=== PATIENT | female | born 1995 | race Caucasian/White ===

== ENCOUNTER → 2019-11-14 07:54 | Outpatient (CLI) | payer OTHER, SELFPAY ==
--- NOTE | ~2019-11-14 | MR_ITS ---
EXAMINATION: MR knee RT wo con DATE: 11/14/2019 08:41 INDICATION: Right knee pain and swelling with limited range of motion post soccer injury with 2 audib le pops 2-3 weeks prior TECHNIQUE: Magnetic resonance imaging (MRI) of the right knee was performed without intravenous contr ast. Sequences included coronal PD-weighted FSE, coronal PD-weighted FS FSE, sagittal T2-weighted FS E, sagittal PD-weighted FS FSE and axial PD weighted fat saturated FSE. COMPARISON: None. FINDINGS: Medial compartment: Additional oblique tear extending to the inferior articular surface and the peripheral third of the p osterior horn and posterior body of the medial meniscus. Suggestion of an additional small tear plane along the inferior articular surface at the junction of the inner and mid thirds of the posterior ho rn. There is a bone contusion with marrow edema along the posterior rim of the medial tibial plateau but without evident cartilage defect. Articular cartilage the medial compartment appears normal. Lateral compartment: Lateral meniscus is normal. Articular cartilage is normal. Additional bone contusions without discret e fracture lines or overlying cartilage defects at the lateral sulcus of the lateral femoral condyle and posterior rim of the lateral tibial plateau. Patellofemoral compartment: Articular cartilage is normal. Ligaments and tendons: Complete tear of the proximal anterior cruciate ligament which is reflected anteriorly and inferiorly resulting in a cyclops lesion with the torn ligament margin positioned at the anterolateral aspect o f the intercondylar notch. Posterior cruciate ligament is normal. The medial collateral ligament is n ormal. There is mild increased signal along the otherwise normal-appearing fibular collateral ligamen t consistent with low-grade sprain. Popliteal muscle and tendon from the arcuate ligament, anterior a nd posterior ligaments of the fibular head and capsule at the posterolateral corner appear to remain normal. The extensor mechanism is normal. The visualized medial and lateral hamstring tendons as well as the iliotibial band are normal. Fluid: Small knee joint effusion. No loose osteochondral bodies identified. Osseous/other: Bone contusions at the medial and lateral femoral condyles and posterior tibia as previously detailed in pattern consistent with anterior tibial subluxation injury occurring with anterior cruciate ligam ent tear. No fracture or pathologic marrow replacing process. IMPRESSION: 1. Anterior tibial subluxation injury pattern with complete tear of the anterior cruciate ligament wi th bone contusions at the medial and lateral femoral condyles and on the posterior margin of the medi al and lateral tibial plateaus. 2. Tear of the body and posterior horn of the medial meniscus with at least a peripheral longitudinal oblique tear plane and possible separate small secondary tear plane closer to the free edge at the p osterior horn. 3. Likely low-grade sprain of the proximal fibular collateral ligament. Reviewed, dictated and finalized at location A. [facility] [employer] IMPRESSION: 1. Anterior tibial subluxation injury pattern with complete tear of the anterio r cruciate ligament with bone contusions at the medial and lateral femoral cond yles and on the posterior margin of the medial and lateral tibial plateaus. 2. Tear of the body and posterior horn of the medial meniscus with at least a p eripheral longitudinal oblique tear plane and possible separate small secondary tear plane closer to the free edge at the posterior horn. 3. Likely low-grade sprain of the proximal fibular collateral ligament.
== END ==
DX: S83.241A Other tear of medial meniscus, current injury, right knee, initial encounter (principal); X58.XXXA Exposure to other specified factors, initial encounter; M25.461 Effusion, right knee; M25.361 Other instability, right knee
CPT/HCPCS: 73721

== ENCOUNTER 2020-06-21 10:58 | Emergency (ER) | payer OTHER, SELFPAY ==
[2020-06-21 11:10] VITALS: BP 137/89; PULSE 78; RESP 16; TEMP 36.7; O2SAT 100
--- NOTE | 2020-06-21 11:43 | PC.NURSE ---
1142- Pt updated on wait time. No further complaints at this time.
--- NOTE | 2020-06-21 11:56 | ED.URI ---
HPI - URI/Sore Throat General Chief Complaint: Upper Respiratory Infection Stated Complaint: sore throat/hong Time Seen by Provider: 06/21/20 11:56 Source: patient Mode of arrival: ambulatory Limitations: no limitations History of Present Illness HPI Narrative: Abel Valverde is a 25 yo female with no PMH who comes to express care with 6 days of headache and sore throat. She states that she has been checking her temperature daily and does not have a fever, she has been checked multiple times for COVID in all tested been negative, but she continues to have the symptoms and does not feel well in general. Currently she rates her sore throat is being 3 out of 10; she is not eating as well as she normally does nor is she drinking as much fluid Related Data Allergies Allergy/AdvReac Type Severity Reaction Status Date / Time No Known Allergies Allergy Verified 06/21/20 11:16 Review of Systems Review of Systems: Narrative: CONSTITUTIONAL: Denies fever, chills, sweats. EYES: Denies visual changes, redness, discharge. ENT: Denies rhinorrhea, congestion, has sore throat, no otalgia. CARDIOVASCULAR: Denies chest pain, palpitations, edema. RESPIRATORY: Denies dyspnea, wheezing, no cough GASTROINTESTINAL: Denies abdominal pain, nausea, vomiting, diarrhea. GENITOURINARY: Denies dysuria, hematuria, abnormal discharge SKIN: Denies rash or itching. NEUROLOGIC: Denies numbness, or focal weakness. Headache PSYCHIATRIC: Denies anxiety or depression. PMFSH Past Medical History Medical History No active medical problems Family History Family History Other No active medical problems Social History Social History Smoking status: Never smoker Alcohol intake: current Gender identity (if verbalized by the patient): Female Comments at time of signature, I agree with nursing past medical, surgical, social and family history. There is no relevant family history pertinent to the presenting complaint. Exam Narrative: Exam Narrative: GENERAL: This is a well-nourished, well-developed patient, in mild distress. HEAD: normocephalic, atraumatic. EYES: PERRL. Sclera clear/white. Vision is grossly intact. EARS: External ears normal, . Hearing grossly intact. NOSE: External nose normal without nasal discharge, nares without redness, no rhinorrhea. THROAT: Mucous membranes moist, posterior pharynx erythema with pockets in left tonsil some exudate in center NECK: Neck supple, mild-tenderness no enlarged lymph nodes CARDIOVASCULAR: Regular rate and rhythm without murmurs, gallops, or rubs. RESPIRATORY: Clear to auscultation. Breath sounds equal bilaterally. No wheezes, rales, or rhonchi. GASTROINTESTINAL: Abdomen soft, non-tender, SKIN: warm, intact with no suspicious lesions or rash, good texture and turgor. NEURO: awake, alert, and oriented to person, place and time. There were no obvious focal neurologic abnormalities. Steady gait EXTREMITIES: Normal range of motion. BACK: Nontender without deformity get little upset Course Course Emergency Course: Both flu and strep swab were negative Because of the length of symptoms and also the condition of her posterior pharynx, , started on Zithromax and prednisone. Discussed hydration and taking a medication for the next couple of days We will follow-up with primary care physician Vital Signs Vital signs: Vital Signs Temperature 98.0 F 06/21/20 11:10 Pulse Rate 78 06/21/20 11:10 Respiratory Rate 16 06/21/20 11:10 Blood Pressure 137/89 06/21/20 11:10 Pulse Oximetry 100 06/21/20 11:10 Temperature 98.0 F 06/21/20 11:10 Pulse Rate 78 06/21/20 11:10 Respiratory Rate 16 06/21/20 11:10 Blood Pressure 137/89 06/21/20 11:10 Pulse Oximetry 100 06/21/20 11:10 MDM - URI/Sore Throat Differential Diagn
== END 2020-06-21 12:15 | disposition home or self-care (01) ==
PROVIDERS: Emergency Provider Nurse Practitioner
DX: J02.8 Acute pharyngitis due to other specified organisms (principal); J06.9 Acute upper respiratory infection, unspecified
CPT/HCPCS: 87081; 87804; 87880; 99203; G0463

== ENCOUNTER 2022-06-16 23:23 | Emergency (ER) | payer OTHER, SELFPAY ==
--- NOTE | ~2022-06-16 | CT_ITS ---
EXAMINATION: CT lumbar spine wo con DATE: 06/17/2022 01:07 INDICATION: Low back pain radiating down the left leg. TECHNIQUE: Computed tomography (CT) of the lumbar spine was performed without intravenous contrast. A utomated exposure control and iterative reconstruction technique were employed. The dose-length produ ct was 366.32 mGy-cm. COMPARISON: None FINDINGS: There is 13 degrees levoscoliosis of lumbar spine. Vertebral body heights are normal. There is mildly decreased disc height at L4-L5 and L5-S1. The following disc levels are specifically discu ssed: L1-L2: The disc does not extend beyond the endplate margin. There is mild bilateral facet joint osteo arthritis. There is no neural foraminal stenosis. There is no central canal stenosis. L2-L3: The disc does not extend beyond the endplate margin. There is mild bilateral facet joint osteo arthritis. There is no neural foraminal stenosis. There is no central canal stenosis. L3-L4: The disc is mildly bulging. There is mild bilateral facet joint osteoarthritis. There is mild left neural foraminal stenosis. There is no central canal stenosis. L4-L5: The disc is bulging. There is mild bilateral facet joint osteoarthritis. There is mild bilater al neural foraminal stenosis. There is mild central canal stenosis. L5-S1: The disc is bulging. There is moderate right facet joint osteoarthritis. There is mild bilater al neural foraminal stenosis. There is mild central canal stenosis. IMPRESSION: 1. Mild lumbar spondylosis. 2. Lumbar levoscoliosis. Reviewed, dictated and finalized at location A.
[2022-06-16 23:57] VITALS: O2SAT 100
--- NOTE | 2022-06-17 00:18 | ED.BACK ---
HPI - Back Pain/Injury General Chief Complaint: Back Pain/Injury Stated Complaint: Low back pain Time Seen by Provider: 06/17/22 00:10 Source: patient Mode of arrival: ambulatory Limitations: no limitations History of Present Illness HPI Narrative: This is a 27 year old female that presents to the ER for low back pain ongoing over the last week. Reports no known recent injury. Reports today she was running at soccer practice and starting to slow down. She felt a sudden pop in her lower back. She has had sharp pain in the lower back since. It is radiating down her left leg. She took Tylenol and Ibuprofen earlier with little relief. Denies saddle anesthesia or bowel/bladder incontinence. Related Data Allergies Allergy/AdvReac Type Severity Reaction Status Date / Time No Known Allergies Allergy Verified 06/21/20 11:16 Review of Systems Review of Systems: CONSTITUTIONAL: Denies fever SKIN: Denies rash MUSCULOSKELETAL: Reports back pain, joint pain, and myalgia. NEUROLOGIC: Denies numbness, or weakness. All systems reviewed & are unremarkable except as noted in HPI and below PMFSH Past Medical History Medical History (Updated 06/17/22 @ 01:36 by Luda Carrillo PA-C) No active medical problems Family History Family History Other No active medical problems Social History Social History (Updated 06/17/22 @ 00:18 by Luda Carrillo PA-C) Smoking status: Never smoker Alcohol intake: current Substance use: never Gender identity (if verbalized by the patient): Female Exam Narrative: GENERAL: Well-appearing, well-nourished, and in no acute distress. HEAD: Normocephalic, atraumatic. EYES: EOMI. CHEST: Clear to auscultation. No respiratory distress. No wheezes rales or rhonchi HEART: Regular rate and rhythm. No murmur heard. Normal peripheral pulses. BACK: No midline spinal tenderness EXTREMITIES: Normal range of motion. No edema. Normal DP pulses. Strength equal in bilateral lower extremities (5/5) SKIN: Warm, dry, no rash. NEURO: No focal deficits. Alert and oriented x3. Normal gait PSYCH: Normal mood and affect Course Vital Signs Vital signs: Vital Signs Pulse Oximetry 100 06/16/22 23:57 Temperature 98.5 F 06/17/22 01:48 Pulse Rate 64 06/17/22 01:48 Respiratory Rate 18 06/17/22 01:48 Blood Pressure 122/73 06/17/22 01:48 Pulse Oximetry 100 06/17/22 01:48 MDM - Back Pain/Injury MDM Narrative Medical decision making narrative: Patient presents to the emergency department for low back pain radiating into the left leg ongoing over the last week with acute worsening today. Patient is neurovascularly intact. CT scan of the lumbar spine shows mild bilateral foraminal stenosis at L4/5 from a bulging disc. No acute findings. Patient and family updated on case findings. Instructed to rest, ice and take [id number] pain medication as needed. Will be prescribed muscle relaxer as needed for pain. Will be given neurosurgery for follow-up. She was given warnings to return to the ER Lab Data Labs: UCG Bedside Result Negative Reference Range: Negative Imaging Data Radiologist's impression: CT lumbar spine STATRAD: Mild bilateral foraminal stenosis at L4/5 from disc bulge. No acute findings Critical Care Time Critical Care Time Critical Care Time: No Discharge Plan Discharge Clinical Impression: Lumbar radiculopathy Patient Disposition: Home, Self-Care Condition: Stable Instructions: Lumbar Radiculopathy (ED) Additional Instructions: Return to the ER if you experience weakness, numbness, bowel/bladder incontinence, or any other symptoms that are concerning to you Rest, use ice/heat, take anti-inflammatories (Aleve, Ibuprofen, Naproxen, etc) or Tylenol as needed for pain as well as muscle relaxer (Flexeril) as needed for pa
[2022-06-17 00:19] VITALS: O2SAT 100
[2022-06-17 00:31] VITALS: BP 126/79
[2022-06-17 00:34] VITALS: O2SAT 100
[2022-06-17] MEDS: KETOROLAC 30 MG/ML VIAL (*BKC) IM (00:47)
[2022-06-17] MEDS: diazePAM INJ (*CRX) 10 MG/2 ML SYRINGE 5 MG IM (00:48)
[2022-06-17 01:48] VITALS: BP 122/73; PULSE 64; RESP 18; TEMP 36.9; O2SAT 100
== END 2022-06-17 02:11 | disposition home or self-care (01) ==
PROVIDERS: Emergency Provider General Practice
DX: M54.16 Radiculopathy, lumbar region (principal)
CPT/HCPCS: 72131; 81025; 96372; 99284; J1885; J3360

== ENCOUNTER 2024-01-08 15:21 | Emergency (ER) | payer OTHER, SELFPAY ==
[2024-01-08 15:31] VITALS: BP 130/69; PULSE 91; RESP 18; TEMP 36.6; O2SAT 100
[2024-01-08 15:34] VITALS: BP 130/69; PULSE 91; RESP 18; TEMP 36.6; O2SAT 100
--- NOTE | 2024-01-08 16:04 | ED.SKABFB ---
HPI - Skin/Abscess/Foreign Bdy General Chief complaint: Skin/Abscess/Foreign Body Stated complaint: rash Time Seen by Provider: 01/08/24 15:27 Source: patient Mode of arrival: ambulatory Limitations: no limitations History of Present Illness HPI narrative: 28-year-old female presents to [facility] with concerns of possible mite type rash. Patient reports that for the past month she has had dry skin to her bilateral hands; she reports that she has a black interior in her car and sometimes she sees white particles floating in the air and her cats have been staring at the particles and she is concerned about a mite. Patient reports that cats have more cones in their eyes and are able to see better than humans. Patient reports that she disposed of her box spring, mattress and numerous items at home she is concerned that her home is infested with mites or mold. Patient reports that she is sleeping about having a local prestressed concrete laborer come into her home. Patient reports that she went to a different local urgent care and did not see a provider but was told to get permethrin. Patient reports that she did not get a prescription at that time. Patient denies fever, body aches, chills, nausea vomiting or diarrhea. Patient reports current rash. MD complaint: rash Location: generalized Relieving factors: none Exacerbating factors: none Associated symptoms: itching Related Data Home Medications Medication Instructions Recorded Confirmed No Home Medications 01/08/24 01/08/24 Allergies Allergy/AdvReac Type Severity Reaction Status Date / Time No Known Allergies Allergy Verified 01/08/24 15:34 Review of Systems Constitutional: Constitutional: Denies chills, Denies fatigue, Denies fever(s) and Denies weakness ENT: Denies vertigo and Denies dizziness Cardiovascular: Cardiovascular: Denies chest pain Respiratory: Respiratory: Denies cough Gastrointestinal: Gastrointestinal: Denies diarrhea, Denies nausea and Denies vomiting Integumentary/Breasts: Skin/Breast: Reports breast mass, Reports pruritus, Denies erythema, Reports rash and Denies skin ulcer Neurologic: Denies vertigo, Denies dizziness and Denies syncope [facility] Past Medical History Medical History (Updated 01/08/24 @ 16:09 by Mickie Espinosa APRN) No active medical problems Family History Family History Other No active medical problems Social History Social History Smoking status: Never smoker Alcohol intake: current Substance use: never Gender identity (if verbalized by the patient): Female Comments At time of signature, I agree with nursing past medical, surgical, social and family history. There is no relevant family history pertinent to the presenting complaint. Exam Const: General: healthy appearing Nutritional Appearance: well nourished Orientation/consciousness: patient oriented x3 Limitations: no limitations HENMT: Head: normal to inspection Eyes: Conjunctivae: conjunctivae normal Neck: Neck: normal visual inspection Resp: Effort & Inspection: normal respiratory effort and not labored Auscultation: clear to auscultation bilaterally, no crackles and no rales Cardio: Rate: regular rate Rhythm: regular rhythm Heart sounds: no murmurs Skin: General skin exam: normal color Rashes: no rashes Wounds: no wounds Other: There is a cyst 2 cm healing abrasion noted to dorsal aspect of left hand; no active rash noted. No signs or symptoms of a mite type rash Neuro: General: patient oriented x3 Speech: normal speech Psych: Affect: normal affect Attitude: cooperative Course Course Level of Care: Express Care Visit Vital Signs Vital signs: Vital Signs Temperature 36.6 C 01/08/24 15:31 Pulse Rate 91 01/08/24 15:31 Respiratory Rate 18 01/08/24 15:31 Blood Pressure 130/69 01/08/24 15:31 Pulse Oximet
== END 2024-01-08 16:10 | disposition home or self-care (01) ==
PROVIDERS: Emergency Provider Nurse Practitioner Family
DX: R21 Rash and other nonspecific skin eruption (principal)
CPT/HCPCS: 99211; G0463